=== PATIENT | female | born 1980 | race Caucasian/White ===

== ENCOUNTER 2020-07-27 19:23 | Inpatient (IN) | payer OTHER ==
[~2020-07-27] VITALS: Ht 154.9 cm; Wt 69.0 kg
[2020-07-27] MEDS ORDERED: NITR0.4T52 SL (19:50)
[2020-07-27] MEDS ORDERED: ATOR40TA28 PO (19:50)
[2020-07-27] MEDS ORDERED: ASPI81TA39 PO (19:50)
[2020-07-27] MEDS ORDERED: CLOP-31 PO (19:50)
[2020-07-27] MEDS ORDERED: ASPIRIN 325 MG TABLET PO ONE (20:15)
[2020-07-27] MEDS ORDERED: NITROGLYCERIN 0.4 MG SUBLINGUAL TABLET #25 SL ONE (20:15)
[2020-07-27] MEDS ORDERED: NITROGLYCERIN 2% (1 GM=INCH) PACKET TP ONE (20:15)
[2020-07-27 20:25] LABS: BASOPHILS % (AUTO) 0.5 % (0.0-2.0); EOSINOPHILS % (AUTO) 3.8 % (1.0-6.0); HEMATOCRIT 32.4 % (36-46); HEMOGLOBIN 9.8 g/dL (12.0-16.0); LYMPHOCYTES # (AUTO) 5.6 K/uL (1.0-4.8); LYMPHOCYTES % (AUTO) 53.7 % (22.0-44.0); MEAN CORPUSCULAR HEMOGLOBIN 20.4 pg (26.0-34.0); MEAN CORPUSCULAR HGB CONC 30.4 G/dL (31.0-37.0); MEAN CORPUSCULAR VOLUME 67 fL (80-100); MONOCYTES # (AUTO) 0.8 K/uL (0.1-1.0); MONOCYTES % (AUTO) 7.4 % (2.0-9.0); NEUTROPHILS # (AUTO) 3.6 K/uL (1.8-7.7); NEUTROPHILS % (AUTO) 34.6 % (40.0-70.0); PLATELET COUNT (AUTO) 328 K/uL (150-450); RED BLOOD CELL COUNT(AUTO) 4.82 MIL/uL (4.00-5.20); RED CELL DISTRIBUTION WIDTH 18.6 % (11.5-14.5)
[2020-07-27 20:50] LABS: COVID AG,FIA SOURCE NASOPHARYNGEAL
[2020-07-27 21:05] LABS: ANION GAP 8 mmol/L (8-16); CALCIUM, TOTAL 9.1 mg/dL (8.8-10.5); CARBON DIOXIDE 29 mmol/L (22-29); CHLORIDE 103 mmol/L (98-107); CREATININE 0.79 mg/dL (0.60-1.30); GLOMERULAR FILTR. RATE CALC > 60 mL/min (>60); GLUCOSE,RANDOM 78 mg/dL (70-110); POTASSIUM 3.6 mmol/L (3.5-5.1); SODIUM SERUM 140 mmol/L (136-145); UREA NITROGEN, BLOOD 13 mg/dL (7-18)
[2020-07-27 21:07] LABS: B-TYPE NATRIURETIC PEPTIDE 28 pg/mL (0-100)
[2020-07-27 21:08] LABS: APPEARANCE,URINE CLOUDY (CLEAR); BILIRUBIN,URINE NEGATIVE (NEGATIVE); GLUCOSE, URINE (UA) NEGATIVE (NEGATIVE); KETONES,URINE NEGATIVE (NEGATIVE); LEUKOCYTE ESTERASE ,URINE SMALL (NEGATIVE); NITRATE,URINE NEGATIVE (NEGATIVE); OCCULT BLOOD,URINE NEGATIVE (NEGATIVE); PROTEIN,URINE NEGATIVE (NEGATIVE); UROBILINOGEN,URINE 0.2 mg/dL (<=1.0)
[2020-07-27 21:18] LABS: LACTIC ACID 2.1 mmol/L (0.4-2.0)
[2020-07-27 21:21] LABS: AMPHET/METH SCREEN,URINE NEGATIVE (NEGATIVE); BARBITURATE SCREEN, URINE NEGATIVE (NEGATIVE); BENZODIAZEPINES SCREEN,URINE NEGATIVE (NEGATIVE); CANNABINOID SCREEN,URINE NEGATIVE (NEGATIVE); COCAINE SCREEN,URINE NEGATIVE (NEGATIVE); METHADONE SCREEN, URINE NEGATIVE (NEGATIVE); OPIATE SCREEN,URINE NEGATIVE (NEGATIVE)
[2020-07-27 21:22] LABS: PHENCYCLIDINE SCREEN,URINE NEGATIVE (NEGATIVE)
[2020-07-27 21:23] LABS: ALANINE AMINOTRANSFERASE 191 U/L (12-78); ALKALINE PHOSPHATASE 131 U/L (46-116); ASPARTATE AMINOTRANSFERASE 88 U/L (15-37); BILIRUBIN,TOTAL 0.1 mg/dL (0.1-1.0); CREATINE KINASE, TOTAL ONLY 80 U/L (26-192); TOTAL PROTEIN, SERUM 8.1 g/dL (6.4-8.2)
[2020-07-27 21:24] LABS: ALBUMIN 3.6 g/dL (3.4-5.0); LIPASE 201 U/L (73-393)
[2020-07-27] MEDS ORDERED: ACETAMINOPHEN 325 MG TABLET PO PRN ×2 (21:30→22:00)
[2020-07-27] MEDS ORDERED: 0.9% SODIUM CHLORIDE 10 ML SYRINGE IVP PRN ×2 (21:30→22:00)
[2020-07-27] MEDS ORDERED: ONDANSETRON HCL 4 MG/2 ML VIAL IVP PRN ×2 (21:30→22:00)
[2020-07-27 21:39] LABS: BACTERIA,URINE None Seen /HPF (None Seen); RBC,URINE None Seen /HPF (0-2); SQUAMOUS EPITHELIAL CELL,UR Moderate /LPF (None Seen); WBC,URINE 0-2 /HPF (0-5)
[2020-07-27 21:43] LABS: HCG,QUANTITATIVE < 1 mIU/mL (0-6)
[2020-07-27] MEDS ORDERED: NITROGLYCERIN 0.4 MG SUBLINGUAL TABLET #25 SL PRN (22:00)
[2020-07-27] MEDS ORDERED: SODIUM CHLORIDE 0.45% 500 ML IV ONE (22:30)
[2020-07-27 22:44] LABS: % IRON SATURATION 19.8 % (22-44)
[2020-07-27 23:40] VITALS: BP 146/85
[2020-07-28] MEDS: HEPARIN SODIUM,PORCINE 5,000 UNITS/ML VIAL SQ SCH ×2 (00:55→08:16)
[2020-07-28] MEDS ORDERED: ACETAMINOPHEN 325 MG TABLET PO ONE ×2 (01:15→18:30)
[2020-07-28] MEDS ORDERED: INFLUENZA VIRUS VACCINE QVS 2020-21 (6MO+)/PF 60 MCG/0.5 ML SYRINGE IM ONE (02:15)
[2020-07-28] MEDS: TICAGRELOR 90 MG TABLET PO SCH ×2 (08:16→20:10)
[2020-07-28] MEDS: ASPIRIN 81 MG CHEWABLE TABLET PO SCH (08:16)
[2020-07-28] MEDS ORDERED: ATORVASTATIN CALCIUM 40 MG TABLET PO SCH (09:00)
[2020-07-28] MEDS: ATORVASTATIN CALCIUM 40 MG TABLET PO SCH (10:56)
[2020-07-28 11:24] VITALS: BP 139/79
[2020-07-28 16:54] VITALS: BP 131/81
[2020-07-28 19:22] VITALS: BP 128/65
[2020-07-28] MEDS: CARVEDILOL 6.25 MG TABLET PO SCH (20:11)
[2020-07-28 23:03] VITALS: BP 135/87
[2020-07-29 05:49] VITALS: BP 133/84
[2020-07-29 08:14] VITALS: BP 111/63
[2020-07-29] MEDS: TICAGRELOR 90 MG TABLET PO SCH (08:35)
[2020-07-29] MEDS: CARVEDILOL 6.25 MG TABLET PO SCH (08:35)
[2020-07-29] MEDS: ATORVASTATIN CALCIUM 40 MG TABLET PO SCH (08:35)
[2020-07-29] MEDS: ASPIRIN 81 MG CHEWABLE TABLET PO SCH (08:35)
[2020-07-29] MEDS ORDERED: LISI-660 PO (10:31)
[2020-07-30] MEDS ORDERED: CLOPIDOGREL BISULFATE 75 MG TABLET PO SCH (09:00)
[2020-07-30] MEDS ORDERED: LISINOPRIL 5 MG TABLET PO SCH (09:00)
== END 2020-07-29 11:10 | disposition home or self-care (01) | DRG 303 ==
LOC: EMS 19:25 → OBSVTOIN 23:22 → 5S 23:22 → INTOOBSV 23:22
PROVIDERS: ADMIT Internal Medicine; ATTEND Internal Medicine
DX: I25.10 Atherosclerotic heart disease of native coronary artery without angina pectoris (principal); I10 Essential (primary) hypertension; E78.5 Hyperlipidemia, unspecified; D64.9 Anemia, unspecified; E78.00 Pure hypercholesterolemia, unspecified; Z20.828 Contact with and (suspected) exposure to other viral communicable diseases; Z95.5 Presence of coronary angioplasty implant and graft; Z88.8 Allergy status to other drugs, medicaments and biological substances
CPT/HCPCS: 83540; 83550; 83605; 85379; 87426; 93005; 93306; 99219; G0480; J1644; 36415-L1; 36415-TC; 71045-TC

== ENCOUNTER 2024-03-11 11:57 | Inpatient (IN) | payer MEDICAID ==
[~2024-03-11] VITALS: Ht 157.5 cm; Wt 71.8 kg
[~2024-03-11 11:57] MED LIST: ASPI81TA39 PO; ATOR40TA28 PO; CLOP75TA60 PO; FLUO-177 PO; LISI-892 PO; NITR0.4T52 SL
[2024-03-11 13:11] LABS: GLUCOMETER DEV NAME(LOC) POC.BV; POC SARS-COV2 AG, FIA NEGATIVE (NEGATIVE)
[2024-03-11] MEDS ORDERED: LORazepam 2 MG TABLET PO PRN (15:45)
[2024-03-11] MEDS ORDERED: ZOLPIDEM TARTRATE 10 MG TABLET PO PRN (15:45)
[2024-03-11 17:43] VITALS: BP 145/74; RESP 18; TEMP 98.3; O2SAT 98
[2024-03-11 18:17] VITALS: BP 140/80; PULSE 80; RESP 18; TEMP 98
[2024-03-11 21:30] VITALS: BP 117/87; PULSE 110; RESP 19; TEMP 97.4; O2SAT 97
[2024-03-11] MEDS ORDERED: IBUPROFEN 400 MG TABLET PO PRN (21:45)
[2024-03-11] MEDS ORDERED: LOPERAMIDE HCL 2 MG CAPSULE PO PRN (21:45)
[2024-03-11] MEDS ORDERED: MAG HYDROX/ALUMINUM HYD/SIMETH ES 30 ML SUSPENSION UDCUP PO PRN (21:45)
[2024-03-11] MEDS ORDERED: PETROLATUM,WHITE 28 GM JELLY TP PRN (21:45)
[2024-03-11] MEDS ORDERED: GuaiFENesin/D-METHORPHAN [SUGAR-FREE] 200-20MG/10 ML SYRUP UDCUP PO PRN (21:45)
[2024-03-11] MEDS ORDERED: NICOTINE 14 MG/24 HOUR PATCH TD PRN (21:45)
[2024-03-11] MEDS ORDERED: ALBUTEROL SULFATE HFA 90 MCG/PUFF 8 GM INHALER IH PRN (21:45)
[2024-03-11] MEDS ORDERED: ACETAMINOPHEN 325 MG TABLET PO PRN (21:45)
[2024-03-11] MEDS ORDERED: DOCUSATE SODIUM 100 MG CAPSULE PO PRN (21:45)
[2024-03-11] MEDS ORDERED: MAGNESIUM HYDROXIDE SUSPENSION 30 ML UDCUP PO PRN (21:45)
[2024-03-12 08:33] LABS: BASOPHILS % (AUTO) 0.4 % (0.0-2.0); EOSINOPHILS % (AUTO) 2.9 % (1.0-6.0); HEMATOCRIT 37.9 % (36-46); HEMOGLOBIN 12.3 g/dL (12.0-16.0); LYMPHOCYTES # (AUTO) 2.1 K/uL (1.0-4.8); LYMPHOCYTES % (AUTO) 27.7 % (22.0-44.0); MEAN CORPUSCULAR HEMOGLOBIN 28.1 pg (26.0-34.0); MEAN CORPUSCULAR HGB CONC 32.5 G/dL (31.0-37.0); MEAN CORPUSCULAR VOLUME 86 fL (80-100); MONOCYTES # (AUTO) 0.6 K/uL (0.1-1.0); MONOCYTES % (AUTO) 8.2 % (2.0-9.0); NEUTROPHILS # (AUTO) 4.5 K/uL (1.8-7.7); NEUTROPHILS % (AUTO) 60.8 % (40.0-70.0); PLATELET COUNT (AUTO) 527 K/uL (150-450); RED BLOOD CELL COUNT(AUTO) 4.38 MIL/uL (4.00-5.20); RED CELL DISTRIBUTION WIDTH 16.9 % (11.5-14.5); WHITE BLOOD COUNT (AUTO) 7.5 K/uL (4.5-11.0)
[2024-03-12 08:46] LABS: HEMOGLOBIN A1C 5.6 % (3.8-5.6)
[2024-03-12 08:58] LABS: ALANINE AMINOTRANSFERASE 17 U/L (12-78); ALBUMIN 3.2 g/dL (3.4-5.0); ALKALINE PHOSPHATASE 119 U/L (46-116); ANION GAP 9 mmol/L (8-16); ASPARTATE AMINOTRANSFERASE 14 U/L (15-37); BILIRUBIN,TOTAL 0.1 mg/dL (0.1-1.0); CALCIUM, TOTAL 9.4 mg/dL (8.8-10.5); CARBON DIOXIDE 29 mmol/L (22-29); CHLORIDE 103 mmol/L (98-107); CHOL/HDL RATIO 6.1 (3.9-5.7); CHOLESTEROL 315 mg/dL (131-200); CREATININE 0.97 mg/dL (0.60-1.30); GLOMERULAR FILTR. RATE CALC > 60 mL/min (>60); GLUCOSE,RANDOM 98 mg/dL (70-110); HCG,QUANTITATIVE 1 mIU/mL (0-6); HDL CHOLESTEROL 52 mg/dL (40-60); LDL CHOL (CALC.) 242 mg/dL (0-130); POTASSIUM 3.6 mmol/L (3.5-5.1); SODIUM SERUM 141 mmol/L (136-145); T4 (THYROXINE) 6.8 mcg/dL (4.7-13.3); THYROID STIMULATING HORMONE 1.03 uIU/mL (0.36-3.74); TOTAL PROTEIN, SERUM 7.9 g/dL (6.4-8.2); TRIGLYCERIDES 107 mg/dL (15-150); UREA NITROGEN, BLOOD 10 mg/dL (7-18)
[2024-03-12] MEDS: CLOPIDOGREL BISULFATE 75 MG TABLET PO SCH (08:58)
[2024-03-12] MEDS: LevETIRAcetam 100 MG/ML 5 ML SOLUTION UDCUP PO SCH (08:58)
[2024-03-12] MEDS: BICTEGRAV/EMTRICIT/TENOFOV ALA 50-200-25 MG TABLET PO SCH (08:58)
[2024-03-12] MEDS: ATORVASTATIN CALCIUM 40 MG TABLET PO SCH (08:59)
[2024-03-12] MEDS: LACOSAMIDE 100 MG TABLET PO SCH (08:59)
[2024-03-12] MEDS: ASPIRIN 81 MG CHEWABLE TABLET PO SCH (08:59)
[2024-03-12] MEDS: LISINOPRIL 10 MG TABLET PO SCH (08:59)
[2024-03-12] MEDS: HALOPERIDOL 5 MG TABLET PO PRN (09:20)
[2024-03-12 09:38] LABS: APPEARANCE,URINE CLEAR (CLEAR); BILIRUBIN,URINE NEGATIVE (NEGATIVE); COLOR,URINE LIGHT YELLOW (YELLOW); GLUCOSE, URINE (UA) NEGATIVE (NEGATIVE); KETONES,URINE NEGATIVE (NEGATIVE); LEUKOCYTE ESTERASE ,URINE MODERATE (NEGATIVE); NITRATE,URINE NEGATIVE (NEGATIVE); OCCULT BLOOD,URINE MODERATE (NEGATIVE); PH,URINE 6.5 (5.0-8.0); PH,URINE DRUG SCREEN 6.5 (5.0-8.0); PROTEIN,URINE TRACE mg/dL (NEGATIVE); SPECIFIC GRAVITIY, URINE 1.018 (1.003-1.030); UROBILINOGEN,URINE <=1.0 mg/dL (<=1.0)
[2024-03-12 09:47] LABS: ALCOHOL, URINE DRUG SCREEN NEGATIVE (NEGATIVE); AMPHET/METH SCREEN,URINE POSITIVE (NEGATIVE); BARBITURATE SCREEN, URINE NEGATIVE (NEGATIVE); BENZODIAZEPINES SCREEN,URINE NEGATIVE (NEGATIVE); CANNABINOID SCREEN,URINE NEGATIVE (NEGATIVE); COCAINE SCREEN,URINE NEGATIVE (NEGATIVE); METHADONE SCREEN, URINE NEGATIVE (NEGATIVE); OPIATE SCREEN,URINE NEGATIVE (NEGATIVE); PHENCYCLIDINE SCREEN,URINE NEGATIVE (NEGATIVE)
[2024-03-12 09:49] VITALS: BP 95/97; PULSE 95; RESP 17; TEMP 97.3; O2SAT 97
[2024-03-12 09:55] LABS: BACTERIA,URINE Few /HPF (None Seen); SQUAMOUS EPITHELIAL CELL,UR Moderate /LPF (None Seen)
[2024-03-12] MEDS ORDERED: TRAZ-252 PO (10:54)
[2024-03-12] MEDS ORDERED: AMIT50TA3 PO (10:54)
[2024-03-12] MEDS: FLUoxetine HCL 20 MG CAPSULE PO SCH (13:09)
[2024-03-12 20:48] VITALS: BP 105/60; PULSE 97; RESP 18; TEMP 98; O2SAT 97
[2024-03-12] MEDS: TraZODone HCL 50 MG TABLET PO SCH (20:59)
[2024-03-12] MEDS: AMITRIPTYLINE HCL 50 MG TABLET PO SCH (20:59)
[2024-03-12] MEDS: METOPROLOL SUCCINATE 50 MG ER TABLET PO SCH (20:59)
[2024-03-13 08:48] VITALS: BP 139/64; PULSE 71; RESP 18; TEMP 97.9; O2SAT 94
[2024-03-13] MEDS: CEPHALEXIN MONOHYDRATE 250 MG CAPSULE PO SCH (09:30)
[2024-03-13] MEDS ORDERED: FLUoxetine HCL 10 MG CAPSULE PO SCH (10:25)
[2024-03-13] MEDS ORDERED: FLUoxetine HCL 20 MG CAPSULE PO SCH (10:25)
[2024-03-13] MEDS: FLUoxetine HCL 20 MG CAPSULE PO SCH (10:51)
[2024-03-13] MEDS ORDERED: LevETIRAcetam 500 MG TABLET PO SCH (17:00)
[2024-03-13] MEDS: ONDANSETRON HCL 4 MG TABLET PO PRN (19:09)
[2024-03-13 19:15] VITALS: BP 138/88; PULSE 74; RESP 18; TEMP 96.6; O2SAT 95
[2024-03-13 19:50] VITALS: BP 149/83; PULSE 70; RESP 18; TEMP 97.4; O2SAT 98
[2024-03-13] MEDS ORDERED: ZOLP-280 PO (19:59)
[2024-03-13] MEDS ORDERED: FAMO20 PO (19:59)
[2024-03-13] MEDS ORDERED: BICT1TAB PO (19:59)
[2024-03-13] MEDS ORDERED: EZET10TA57 PO (19:59)
[2024-03-13] MEDS ORDERED: METO-391 PO (19:59)
[2024-03-13] MEDS ORDERED: LISI10TA24 PO (19:59)
[2024-03-13] MEDS ORDERED: ATOR-2 PO (19:59)
[2024-03-13] MEDS ORDERED: SUMA50TA17 PO (19:59)
[2024-03-13] MEDS ORDERED: ASPI-1444 PO (19:59)
[2024-03-13] MEDS ORDERED: FERR-72 PO (19:59)
[2024-03-13] MEDS ORDERED: SENN-277 PO (19:59)
[2024-03-13] MEDS ORDERED: NALT380S2 IM (19:59)
[2024-03-13] MEDS ORDERED: LEVE10006 PO (19:59)
[2024-03-13] MEDS ORDERED: LACO100 PO (19:59)
[2024-03-13] MEDS ORDERED: CloNIDine HCL 0.1 MG TABLET PO PRN (20:00)
[2024-03-13] MEDS ORDERED: IBUPROFEN 600 MG TABLET PO PRN (20:00)
[2024-03-13] MEDS ORDERED: HydrOXYzine PAMOATE 50 MG CAPSULE PO PRN (20:00)
[2024-03-13] MEDS ORDERED: MAG HYDROX/ALUMINUM HYD/SIMETH ES 30 ML SUSPENSION UDCUP PO PRN (20:00)
[2024-03-13 20:50] VITALS: BP 150/68; PULSE 77; RESP 17; TEMP 97.2; O2SAT 94
[2024-03-13 21:50] VITALS: BP 111/71; PULSE 63; RESP 17; RESP 18; TEMP 97.2; O2SAT 96
[2024-03-13] MEDS: CloNIDine HCL 0.1 MG TABLET PO SCH (22:00)
[2024-03-13 22:50] VITALS: BP 112/69; PULSE 63; RESP 17; TEMP 97.4; O2SAT 98
[2024-03-14] VITALS (10 sets, daily range): BP systolic 117–144; BP diastolic 62–74; PULSE 63–80; RESP 17–18; TEMP 97–98; O2SAT 92–97
[2024-03-15 10:32] VITALS: BP 105/57; PULSE 93; RESP 19; TEMP 97.3; O2SAT 94
[2024-03-15] MEDS ORDERED: FLUO20CA36 PO (11:49)
[2024-03-15] MEDS ORDERED: TRAZ-252 PO (11:49)
[2024-03-15] MEDS ORDERED: AMIT50TA3 PO (11:49)
[2024-03-15 12:12] VITALS: BP 133/95
[2024-03-15] MEDS ORDERED: CEPH-556 PO (12:59)
== END 2024-03-15 16:10 | disposition home or self-care (01) | DRG 751 ==
LOC: B2S 12:42
PROVIDERS: ADMIT Psychiatry & Neurology Psychiatry; ATTEND Psychiatry & Neurology Psychiatry
PROC: GZHZZZZ Group Psychotherapy (ICD-10-PCS; principal; 2024-03-12)
DX: F33.2 Major depressive disorder, recurrent severe without psychotic features (principal); R45.851 Suicidal ideations; G40.909 Epilepsy, unspecified, not intractable, without status epilepticus; G47.00 Insomnia, unspecified; Z79.899 Other long term (current) drug therapy; I10 Essential (primary) hypertension; F15.90 Other stimulant use, unspecified, uncomplicated; F11.90 Opioid use, unspecified, uncomplicated; N39.0 Urinary tract infection, site not specified; I25.10 Atherosclerotic heart disease of native coronary artery without angina pectoris; E78.5 Hyperlipidemia, unspecified; Z20.822 Contact with and (suspected) exposure to COVID-19; Z95.0 Presence of cardiac pacemaker; Z88.2 Allergy status to sulfonamides
CPT/HCPCS: 80053; 80061; 80307; 81001; 83036; 84436; 84443; 84702; 85025; 87086; 87186; Q0162; Q9967

== ENCOUNTER 2024-12-25 20:41 | Inpatient (IN) | payer MEDICAID, OTHER ==
[~2024-12-25] VITALS: Ht 152.4 cm; Wt 65.9 kg
[~2024-12-25 20:41] MED LIST changes: +AMIT50TA3 PO; +ASPI-1444 PO; -ASPI81TA39 PO; +BICT1TAB PO; +CEPH-556 PO; -FLUO-177 PO; +FLUO-418 PO; +LACO100T14 PO; +LEVE10006 PO; -LISI-892 PO; +LISI10TA24 PO; +METO-391 PO; -NITR0.4T52 SL; +TRAZ-252 PO
[2024-12-25 21:14] LABS: BASOPHILS % (AUTO) 0.3 % (0.0-2.0); EOSINOPHILS % (AUTO) 1.4 % (1.0-6.0); HEMATOCRIT 38.5 % (36-46); HEMOGLOBIN 12.2 g/dL (12.0-16.0); LYMPHOCYTES # (AUTO) 1.8 K/uL (1.0-4.8); LYMPHOCYTES % (AUTO) 23.1 % (22.0-44.0); MEAN CORPUSCULAR HEMOGLOBIN 27.1 pg (26.0-34.0); MEAN CORPUSCULAR HGB CONC 31.7 G/dL (31.0-37.0); MEAN CORPUSCULAR VOLUME 86 fL (80-100); MONOCYTES # (AUTO) 0.6 K/uL (0.1-1.0); MONOCYTES % (AUTO) 8.3 % (2.0-9.0); NEUTROPHILS # (AUTO) 5.2 K/uL (1.8-7.7); NEUTROPHILS % (AUTO) 66.9 % (40.0-70.0); PLATELET COUNT (AUTO) 350 K/uL (150-450); WHITE BLOOD COUNT (AUTO) 7.7 K/uL (4.5-11.0)
[2024-12-25 21:24] LABS: COVID AG,FIA SOURCE NASAL SWAB
[2024-12-25 21:26] LABS: APPEARANCE,URINE HAZY (CLEAR); BILIRUBIN,URINE NEGATIVE (NEGATIVE); COLOR,URINE LIGHT YELLOW (YELLOW); GLUCOSE, URINE (UA) NEGATIVE (NEGATIVE); KETONES,URINE NEGATIVE (NEGATIVE); LEUKOCYTE ESTERASE ,URINE NEGATIVE (NEGATIVE); NITRATE,URINE NEGATIVE (NEGATIVE); OCCULT BLOOD,URINE NEGATIVE (NEGATIVE); PROTEIN,URINE TRACE mg/dL (NEGATIVE); SPECIFIC GRAVITIY, URINE 1.023 (1.003-1.030); UROBILINOGEN,URINE <=1.0 mg/dL (<=1.0)
[2024-12-25 21:27] LABS: ANION GAP 9 mmol/L (8-16); CALCIUM, TOTAL 9.1 mg/dL (8.8-10.5); CARBON DIOXIDE 25 mmol/L (22-29); CHLORIDE 104 mmol/L (98-107); GLOMERULAR FILTR. RATE CALC 54 mL/min (>60); GLUCOSE,RANDOM 105 mg/dL (70-110); POTASSIUM 3.6 mmol/L (3.5-5.1); SODIUM SERUM 138 mmol/L (136-145); UREA NITROGEN, BLOOD 14 mg/dL (7-18)
[2024-12-25 21:31] LABS: ALCOHOL, BLOOD (SERUM) < 3 mg/dL (0-10)
[2024-12-25 21:33] LABS: ALCOHOL, URINE DRUG SCREEN NEGATIVE (NEGATIVE); AMPHET/METH SCREEN,URINE NEGATIVE (NEGATIVE); BARBITURATE SCREEN, URINE NEGATIVE (NEGATIVE); BENZODIAZEPINES SCREEN,URINE NEGATIVE (NEGATIVE); CANNABINOID SCREEN,URINE NEGATIVE (NEGATIVE); COCAINE SCREEN,URINE NEGATIVE (NEGATIVE); METHADONE SCREEN, URINE NEGATIVE (NEGATIVE); OPIATE SCREEN,URINE NEGATIVE (NEGATIVE); PHENCYCLIDINE SCREEN,URINE NEGATIVE (NEGATIVE)
[2024-12-25 21:45] LABS: SARS-COV2 (COVID) ANTIGEN,FIA Negative (Negative)
[2024-12-25] MEDS ORDERED: ACYC-138 PO (22:15)
[2024-12-25] MEDS ORDERED: AMIT25TA10 PO (22:22)
[2024-12-25] MEDS ORDERED: CLOP-31 PO (22:23)
[2024-12-25] MEDS ORDERED: ATOR-2 PO (22:23)
[2024-12-25] MEDS ORDERED: EZET10TA82 PO (22:24)
[2024-12-25] MEDS ORDERED: LAMI300T10 PO (22:25)
[2024-12-25] MEDS ORDERED: LISI2.5T91 PO (22:26)
[2024-12-25] MEDS ORDERED: OMEP-148 PO (22:27)
[2024-12-25] MEDS ORDERED: LORA-1370 PO (22:27)
[2024-12-25] MEDS ORDERED: PREG75CA76 PO (22:29)
[2024-12-25] MEDS ORDERED: TENO300 PO (22:29)
[2024-12-25] MEDS ORDERED: DOLU50TA PO (22:30)
[2024-12-25] MEDS ORDERED: TOPI25TA48 PO (22:31)
[2024-12-25] MEDS ORDERED: ZOLPIDEM TARTRATE 5 MG TABLET PO PRN (22:45)
[2024-12-25] MEDS ORDERED: MAGNESIUM HYDROXIDE SUSPENSION 30 ML UDCUP PO PRN (22:45)
[2024-12-25 23:43] VITALS: BP 110/66; PULSE 79; RESP 18; TEMP 98.2; O2SAT 97
[2024-12-26] MEDS ORDERED: FERR325T27 PO (03:58)
[2024-12-26] MEDS ORDERED: LAMO-24 PO (03:58)
[2024-12-26] MEDS ORDERED: PARO-38 PO (03:58)
[2024-12-26 05:29] VITALS: BP 104/58; PULSE 85; RESP 18; TEMP 97.8; O2SAT 97
[2024-12-26 08:24] VITALS: BP 111/63; PULSE 81; RESP 20; TEMP 98.1; O2SAT 98
[2024-12-26] MEDS: TENOFOVIR DISOPROXIL FUMARATE 300 MG TABLET PO SCH (09:00)
[2024-12-26] MEDS: DOLUTEGRAVIR SODIUM 50 MG TABLET PO SCH (09:42)
[2024-12-26] MEDS: PANTOPRAZOLE SODIUM 40 MG DR TABLET PO SCH (09:43)
[2024-12-26] MEDS: LISINOPRIL 5 MG TABLET PO SCH (09:43)
[2024-12-26] MEDS: CLOPIDOGREL BISULFATE 75 MG TABLET PO SCH (09:44)
[2024-12-26] MEDS: LORATADINE 10 MG TABLET PO SCH (09:46)
[2024-12-26] MEDS: EZETIMIBE 10 MG TABLET PO SCH (09:46)
[2024-12-26] MEDS: LamoTRIgine 100 MG TABLET PO SCH (09:47)
[2024-12-26] MEDS: TOPIRAMATE 25 MG TABLET PO SCH (09:47)
[2024-12-26] MEDS: ATORVASTATIN CALCIUM 40 MG TABLET PO SCH (09:47)
[2024-12-26] MEDS: PREGABALIN 75 MG CAPSULE PO SCH (09:48)
[2024-12-26] MEDS: LACOSAMIDE 100 MG TABLET PO SCH (09:48)
[2024-12-26] MEDS: LevETIRAcetam 100 MG/ML 5 ML SOLUTION UDCUP PO SCH (09:50)
[2024-12-26] MEDS: ASPIRIN 81 MG DR TABLET PO SCH (09:52)
[2024-12-26] MEDS: ACETAMINOPHEN 325 MG TABLET PO PRN (17:09)
[2024-12-26] MEDS ORDERED: RIME75TA PO (17:26)
[2024-12-26] MEDS: SUMAtriptan SUCCINATE 25 MG TABLET PO PRN (17:58)
[2024-12-26 19:30] VITALS: BP 125/84; PULSE 100; RESP 18; TEMP 98.6; O2SAT 97
[2024-12-26] MEDS: PARoxetine HCL 20 MG TABLET PO SCH (19:53)
[2024-12-26] MEDS: AMITRIPTYLINE HCL 50 MG TABLET PO SCH (19:53)
[2024-12-26] MEDS: QUEtiapine FUMARATE 25 MG TABLET PO SCH (19:53)
[2024-12-26] MEDS: LORazepam 2 MG/ML VIAL IM ONE (21:45)
[2024-12-26] MEDS: DiphenhydrAMINE HCL 50 MG/ML VIAL IM ONE (21:55)
[2024-12-26] MEDS: HALOPERIDOL LACTATE 5 MG/ML VIAL IM ONE (21:55)
[2024-12-27 08:24] VITALS: BP 111/82; PULSE 82; RESP 18; TEMP 97.6; O2SAT 96
[2024-12-28] MEDS: HALOPERIDOL LACTATE 5 MG/ML VIAL IM ONE (00:17)
[2024-12-28 09:11] VITALS: BP 98/58; PULSE 85; RESP 18; TEMP 98; O2SAT 96
== END 2024-12-28 20:00 | DRG 885 ==
LOC: EMS 20:41 → EDH 22:36 → 6N 23:29
PROVIDERS: ADMIT Internal Medicine; ATTEND Internal Medicine
PROC: GZ56ZZZ Individual Psychotherapy, Supportive (ICD-10-PCS; principal; 2024-12-26)
PROC: GZ58ZZZ Individual Psychotherapy, Cognitive-Behavioral (ICD-10-PCS; 2024-12-26)
DX: F29 Unspecified psychosis not due to a substance or known physiological condition (principal); K21.9 Gastro-esophageal reflux disease without esophagitis; I11.0 Hypertensive heart disease with heart failure; Z20.822 Contact with and (suspected) exposure to COVID-19; I50.9 Heart failure, unspecified; F20.9 Schizophrenia, unspecified; R56.9 Unspecified convulsions; F32.A Depression, unspecified; F41.9 Anxiety disorder, unspecified; Z79.899 Other long term (current) drug therapy; Z88.2 Allergy status to sulfonamides
CPT/HCPCS: 80048; 80307; 81003; 84703; 85025; 93306; 99285; G0480; J1200; J1630; J2060

== ENCOUNTER 2025-02-18 15:19 | Inpatient (IN) | payer OTHER ==
[~2025-02-18] VITALS: Ht 152.4 cm; Wt 81.8 kg
[~2025-02-18 15:19] MED LIST changes: +ACYC-138 PO; -AMIT50TA3 PO; +ATOR-2 PO; -ATOR40TA28 PO; -BICT1TAB PO; -CEPH-556 PO; +CLOP-31 PO; -CLOP75TA60 PO; +DOLU50TA PO; +EZET10TA82 PO; -FLUO-418 PO; +LAMI300T10 PO; +LAMO-24 PO; +LEVE100023 PO; -LEVE10006 PO; -LISI10TA24 PO; +LISI2.5T91 PO; +LORA-1370 PO; -METO-391 PO; +OMEP-148 PO; +PARO-38 PO; +PREG75CA76 PO; +RIME75TA PO; +TENO300 PO; +TOPI25 PO
[2025-02-18 16:14] LABS: BASOPHILS % (AUTO) 0.4 % (0.0-2.0); EOSINOPHILS % (AUTO) 2.3 % (1.0-6.0); HEMATOCRIT 37.7 % (36-46); HEMOGLOBIN 12.1 g/dL (12.0-16.0); LYMPHOCYTES # (AUTO) 2.1 K/uL (1.0-4.8); LYMPHOCYTES % (AUTO) 27.4 % (22.0-44.0); MEAN CORPUSCULAR HEMOGLOBIN 27.4 pg (26.0-34.0); MEAN CORPUSCULAR HGB CONC 32.1 G/dL (31.0-37.0); MEAN CORPUSCULAR VOLUME 85 fL (80-100); MONOCYTES # (AUTO) 0.7 K/uL (0.1-1.0); MONOCYTES % (AUTO) 9.1 % (2.0-9.0); NEUTROPHILS # (AUTO) 4.8 K/uL (1.8-7.7); NEUTROPHILS % (AUTO) 60.8 % (40.0-70.0); PLATELET COUNT (AUTO) 327 K/uL (150-450); RED BLOOD CELL COUNT(AUTO) 4.42 MIL/uL (4.00-5.20); RED CELL DISTRIBUTION WIDTH 17.3 % (11.5-14.5); WHITE BLOOD COUNT (AUTO) 7.8 K/uL (4.5-11.0)
[2025-02-18 16:24] LABS: ANION GAP 10 mmol/L (8-16); CARBON DIOXIDE 28 mmol/L (22-29); CHLORIDE 105 mmol/L (98-107); CREATININE 0.85 mg/dL (0.60-1.30); GLOMERULAR FILTR. RATE CALC > 60 mL/min (>60); GLUCOSE,RANDOM 94 mg/dL (70-110); POTASSIUM 4.4 mmol/L (3.5-5.1); SODIUM SERUM 143 mmol/L (136-145); UREA NITROGEN, BLOOD 11 mg/dL (7-18)
[2025-02-18 16:30] LABS: PROTHROMBIN TIME 10.1 SEC (9.4-11.6)
[2025-02-18 16:34] LABS: CREATINE KINASE, TOTAL ONLY 67 U/L (26-192)
[2025-02-18 16:36] LABS: TROPONIN I-HIGH SENSITIVITY Less Than 4 ng/L (<51)
[2025-02-18] MEDS: NITROGLYCERIN 2% (1 GM=INCH) OINTMENT PACKET TP ONE (16:42)
[2025-02-18] MEDS: ASPIRIN 81 MG CHEWABLE TABLET PO ONE (16:42)
[2025-02-18 16:43] LABS: APPEARANCE,URINE CLEAR (CLEAR); BILIRUBIN,URINE NEGATIVE (NEGATIVE); COLOR,URINE COLORLESS (YELLOW); GLUCOSE, URINE (UA) NEGATIVE (NEGATIVE); KETONES,URINE NEGATIVE (NEGATIVE); LEUKOCYTE ESTERASE ,URINE NEGATIVE (NEGATIVE); NITRATE,URINE NEGATIVE (NEGATIVE); OCCULT BLOOD,URINE NEGATIVE (NEGATIVE); PROTEIN,URINE NEGATIVE (NEGATIVE); UROBILINOGEN,URINE <=1.0 mg/dL (<=1.0)
[2025-02-18 16:58] LABS: B-TYPE NATRIURETIC PEPTIDE 8 pg/mL (0-100)
[2025-02-18] MEDS ORDERED: ONDANSETRON HCL 4 MG/2 ML VIAL IVP PRN (17:45)
[2025-02-18] MEDS ORDERED: HYDROmorphone HCL 2 MG/ML SYRINGE IVP PRN (18:15)
[2025-02-18 19:37] LABS: TROPONIN I-HIGH SENSITIVITY Less Than 4 ng/L (<51)
[2025-02-18 20:00] VITALS: BP 99/67; PULSE 75; RESP 19; TEMP 98.1; O2SAT 97
[2025-02-18] MEDS ORDERED: NITROGLYCERIN 0.4 MG SUBLINGUAL TABLET #25 SL PRN (20:45)
[2025-02-18] MEDS: RINGERS SOLUTION,LACTATED 500 ML IV ONE (21:01)
[2025-02-18] MEDS: LACOSAMIDE 100 MG TABLET PO SCH (22:41)
[2025-02-18] MEDS: ATORVASTATIN CALCIUM 40 MG TABLET PO SCH (22:41)
[2025-02-18] MEDS: LevETIRAcetam 500 MG TABLET PO SCH (22:41)
[2025-02-18] MEDS: ACETAMINOPHEN 325 MG TABLET PO PRN (22:41)
[2025-02-18] MEDS: TraZODone HCL 50 MG TABLET PO SCH (22:41)
[2025-02-18] MEDS: PREGABALIN 75 MG CAPSULE PO SCH (22:41)
[2025-02-18] MEDS: HEPARIN SODIUM,PORCINE 5,000 UNITS/ML VIAL SQ SCH (23:40)
[2025-02-18] MEDS: LamoTRIgine 100 MG TABLET PO SCH (23:40)
[2025-02-19 00:19] VITALS: BP 103/54; PULSE 76; RESP 18; TEMP 97.5; O2SAT 95
[2025-02-19 05:00] VITALS: BP 95/55; PULSE 78; RESP 19; TEMP 98.2; O2SAT 97
[2025-02-19 06:38] LABS: BASOPHILS % (AUTO) 0.6 % (0.0-2.0); EOSINOPHILS % (AUTO) 3.4 % (1.0-6.0); HEMATOCRIT 35.7 % (36-46); HEMOGLOBIN 11.8 g/dL (12.0-16.0); LYMPHOCYTES # (AUTO) 2.5 K/uL (1.0-4.8); LYMPHOCYTES % (AUTO) 37.8 % (22.0-44.0); MEAN CORPUSCULAR HGB CONC 32.9 G/dL (31.0-37.0); MEAN CORPUSCULAR VOLUME 85 fL (80-100); MONOCYTES # (AUTO) 0.6 K/uL (0.1-1.0); MONOCYTES % (AUTO) 9.6 % (2.0-9.0); NEUTROPHILS # (AUTO) 3.2 K/uL (1.8-7.7); NEUTROPHILS % (AUTO) 48.6 % (40.0-70.0); PLATELET COUNT (AUTO) 309 K/uL (150-450); RED CELL DISTRIBUTION WIDTH 17.2 % (11.5-14.5); WHITE BLOOD COUNT (AUTO) 6.5 K/uL (4.5-11.0)
[2025-02-19 06:52] LABS: ANION GAP 8 mmol/L (8-16); CALCIUM, TOTAL 8.9 mg/dL (8.8-10.5); CARBON DIOXIDE 29 mmol/L (22-29); CHLORIDE 106 mmol/L (98-107); CREATININE 0.92 mg/dL (0.60-1.30); GLOMERULAR FILTR. RATE CALC > 60 mL/min (>60); GLUCOSE,RANDOM 86 mg/dL (70-110); SODIUM SERUM 143 mmol/L (136-145); UREA NITROGEN, BLOOD 12 mg/dL (7-18)
[2025-02-19 08:00] VITALS: BP 112/74; PULSE 93; RESP 18; TEMP 97.7; O2SAT 100
[2025-02-19] MEDS: ASPIRIN 81 MG DR TABLET PO SCH (08:38)
[2025-02-19] MEDS: EZETIMIBE 10 MG TABLET PO SCH (08:38)
[2025-02-19] MEDS: CLOPIDOGREL BISULFATE 75 MG TABLET PO SCH (08:38)
[2025-02-19] MEDS: TOPIRAMATE 25 MG TABLET PO SCH (08:38)
[2025-02-19] MEDS: TENOFOVIR DISOPROXIL FUMARATE 300 MG TABLET PO SCH (08:38)
[2025-02-19] MEDS: PANTOPRAZOLE SODIUM 40 MG DR TABLET PO SCH (08:39)
[2025-02-19] MEDS ORDERED: OMEPRAZOLE 20 MG CAPSULE PO SCH (09:00)
[2025-02-19 10:33] LABS: CHOL/HDL RATIO 5.1 (3.9-5.7); CHOLESTEROL 214 mg/dL (131-200); HDL CHOLESTEROL 42 mg/dL (40-60); LDL CHOL (CALC.) 117 mg/dL (0-130); TRIGLYCERIDES 275 mg/dL (15-150)
[2025-02-19 12:00] VITALS: BP 108/65; PULSE 91; RESP 19; TEMP 97.5; O2SAT 97
[2025-02-19 20:17] VITALS: BP 102/69; PULSE 75; RESP 18; TEMP 98.1; O2SAT 97
[2025-02-19] MEDS: OLANZapine 7.5 MG TABLET PO SCH (20:44)
[2025-02-20 07:09] LABS: BASOPHILS % (AUTO) 0.7 % (0.0-2.0); EOSINOPHILS % (AUTO) 3.7 % (1.0-6.0); HEMATOCRIT 36.9 % (36-46); HEMOGLOBIN 12.2 g/dL (12.0-16.0); LYMPHOCYTES # (AUTO) 2.4 K/uL (1.0-4.8); LYMPHOCYTES % (AUTO) 34.9 % (22.0-44.0); MEAN CORPUSCULAR HEMOGLOBIN 27.9 pg (26.0-34.0); MEAN CORPUSCULAR VOLUME 85 fL (80-100); MONOCYTES # (AUTO) 0.6 K/uL (0.1-1.0); MONOCYTES % (AUTO) 8.8 % (2.0-9.0); NEUTROPHILS # (AUTO) 3.6 K/uL (1.8-7.7); NEUTROPHILS % (AUTO) 51.9 % (40.0-70.0); PLATELET COUNT (AUTO) 323 K/uL (150-450); RED BLOOD CELL COUNT(AUTO) 4.36 MIL/uL (4.00-5.20); RED CELL DISTRIBUTION WIDTH 17.3 % (11.5-14.5); WHITE BLOOD COUNT (AUTO) 6.8 K/uL (4.5-11.0)
[2025-02-20 07:35] LABS: ALANINE AMINOTRANSFERASE 46 U/L (12-78); ALBUMIN 3.3 g/dL (3.4-5.0); ALKALINE PHOSPHATASE 117 U/L (46-116); ANION GAP 8 mmol/L (8-16); ASPARTATE AMINOTRANSFERASE 26 U/L (15-37); BILIRUBIN,TOTAL 0.1 mg/dL (0.1-1.0); CARBON DIOXIDE 28 mmol/L (22-29); CHLORIDE 104 mmol/L (98-107); CREATININE 0.96 mg/dL (0.60-1.30); GLOMERULAR FILTR. RATE CALC > 60 mL/min (>60); GLUCOSE,RANDOM 92 mg/dL (70-110); POTASSIUM 3.7 mmol/L (3.5-5.1); SODIUM SERUM 140 mmol/L (136-145); TOTAL PROTEIN, SERUM 7.3 g/dL (6.4-8.2); UREA NITROGEN, BLOOD 14 mg/dL (7-18)
[2025-02-20 07:42] LABS: RBC MORPHOLOGY COMMENT ABNORMAL RBC MORPH
[2025-02-20 08:46] VITALS: BP 96/64; PULSE 83; RESP 18; TEMP 98.2; O2SAT 96
[2025-02-20] MEDS ORDERED: PANT-31 PO (11:50)
[2025-02-20] MEDS ORDERED: OLAN7.5T22 PO (11:55)
== END 2025-02-20 20:12 | DRG 313 ==
LOC: EMS 15:20 → EDH 17:53 → 5S 19:00 → 6S 02-20 11:25
PROVIDERS: ADMIT Internal Medicine; ATTEND Internal Medicine
DX: R07.89 Other chest pain (principal); I25.10 Atherosclerotic heart disease of native coronary artery without angina pectoris; I95.9 Hypotension, unspecified; E78.5 Hyperlipidemia, unspecified; F32.9 Major depressive disorder, single episode, unspecified; G47.00 Insomnia, unspecified; F43.10 Post-traumatic stress disorder, unspecified; F41.9 Anxiety disorder, unspecified; Z79.899 Other long term (current) drug therapy; Z95.0 Presence of cardiac pacemaker; Z87.891 Personal history of nicotine dependence
CPT/HCPCS: 71045; 80048; 80053; 80061; 81003; 82550; 83735; 83880; 84484; 85025; 85379; 85610; 85730; 93005; 93306; 99285; J1644; J7120; 36415-L1; 36415-TC

== ENCOUNTER 2025-03-02 11:53 | Inpatient (IN) | payer OTHER ==
[~2025-03-02] VITALS: Ht 152.4 cm; Wt 73.4 kg
[~2025-03-02 11:53] MED LIST changes: -ACYC-138 PO; -DOLU50TA PO; -LISI2.5T91 PO; -LORA-1370 PO; +OLAN7.5T22 PO; -OMEP-148 PO; +PANT-31 PO; -PARO-38 PO; -RIME75TA PO
[2025-03-02 14:43] LABS: BASOPHILS % (AUTO) 0.5 % (0.0-2.0); EOSINOPHILS % (AUTO) 1.4 % (1.0-6.0); HEMATOCRIT 36.6 % (36-46); HEMOGLOBIN 11.6 g/dL (12.0-16.0); LYMPHOCYTES # (AUTO) 1.7 K/uL (1.0-4.8); LYMPHOCYTES % (AUTO) 23.3 % (22.0-44.0); MEAN CORPUSCULAR HEMOGLOBIN 27.1 pg (26.0-34.0); MEAN CORPUSCULAR HGB CONC 31.7 G/dL (31.0-37.0); MEAN CORPUSCULAR VOLUME 85 fL (80-100); MONOCYTES # (AUTO) 0.4 K/uL (0.1-1.0); MONOCYTES % (AUTO) 5.8 % (2.0-9.0); NEUTROPHILS # (AUTO) 5.1 K/uL (1.8-7.7); PLATELET COUNT (AUTO) 352 K/uL (150-450); RED CELL DISTRIBUTION WIDTH 16.6 % (11.5-14.5); WHITE BLOOD COUNT (AUTO) 7.4 K/uL (4.5-11.0)
[2025-03-02 14:44] LABS: ANION GAP 8 mmol/L (8-16); CARBON DIOXIDE 28 mmol/L (22-29); CHLORIDE 104 mmol/L (98-107); GLOMERULAR FILTR. RATE CALC > 60 mL/min (>60); GLUCOSE,RANDOM 98 mg/dL (70-110); SODIUM SERUM 140 mmol/L (136-145); UREA NITROGEN, BLOOD 9 mg/dL (7-18)
[2025-03-02 15:52] LABS: APPEARANCE,URINE TURBID (CLEAR); BILIRUBIN,URINE NEGATIVE (NEGATIVE); GLUCOSE, URINE (UA) NEGATIVE (NEGATIVE); KETONES,URINE NEGATIVE (NEGATIVE); LEUKOCYTE ESTERASE ,URINE SMALL (NEGATIVE); NITRATE,URINE NEGATIVE (NEGATIVE); OCCULT BLOOD,URINE LARGE (NEGATIVE); PH,URINE 6.5 (5.0-8.0); PH,URINE DRUG SCREEN 6.5 (5.0-8.0); PROTEIN,URINE 30-70 mg/dL (NEGATIVE); SPECIFIC GRAVITIY, URINE 1.016 (1.003-1.030); UROBILINOGEN,URINE <=1.0 mg/dL (<=1.0)
[2025-03-02 15:59] LABS: COLOR,URINE LIGHT RED (YELLOW)
[2025-03-02 16:08] LABS: ALCOHOL, URINE DRUG SCREEN NEGATIVE (NEGATIVE); AMPHET/METH SCREEN,URINE NEGATIVE (NEGATIVE); BACTERIA,URINE Few /HPF (None Seen); BARBITURATE SCREEN, URINE NEGATIVE (NEGATIVE); BENZODIAZEPINES SCREEN,URINE NEGATIVE (NEGATIVE); CANNABINOID SCREEN,URINE NEGATIVE (NEGATIVE); COCAINE SCREEN,URINE NEGATIVE (NEGATIVE); METHADONE SCREEN, URINE NEGATIVE (NEGATIVE); OPIATE SCREEN,URINE NEGATIVE (NEGATIVE); PHENCYCLIDINE SCREEN,URINE NEGATIVE (NEGATIVE); RBC,URINE >100 /HPF (0-2); SQUAMOUS EPITHELIAL CELL,UR Few /LPF (None Seen)
[2025-03-02] MEDS: LORazepam 2 MG TABLET PO ONE (18:56)
[2025-03-02] MEDS ORDERED: ONDANSETRON HCL 4 MG/2 ML VIAL IVP PRN (20:15)
[2025-03-02] MEDS ORDERED: ACETAMINOPHEN 325 MG TABLET PO PRN (20:15)
[2025-03-02 22:11] VITALS: BP 116/83; PULSE 70; RESP 18; TEMP 98; O2SAT 96
[2025-03-02] MEDS: LevETIRAcetam 500 MG TABLET PO SCH (22:49)
[2025-03-02] MEDS: PREGABALIN 75 MG CAPSULE PO SCH (22:50)
[2025-03-02] MEDS: DEXTROSE 5%-LACTATED RINGERS 1,000 ML IV SCH (22:59)
[2025-03-02] MEDS: OLANZapine 7.5 MG TABLET PO SCH (23:00)
[2025-03-02] MEDS: LamoTRIgine 100 MG TABLET PO SCH (23:00)
[2025-03-03] MEDS: HEPARIN SODIUM,PORCINE 5,000 UNITS/ML VIAL SQ SCH (00:28)
[2025-03-03 04:00] VITALS: BP 102/71; PULSE 68; RESP 18; TEMP 98.6; O2SAT 97
[2025-03-03 07:00] VITALS: BP 98/50; PULSE 63; RESP 19; TEMP 98.1; O2SAT 96
[2025-03-03] MEDS: ASPIRIN 81 MG DR TABLET PO SCH (08:00)
[2025-03-03] MEDS: CLOPIDOGREL BISULFATE 75 MG TABLET PO SCH (10:16)
[2025-03-03] MEDS: ATORVASTATIN CALCIUM 40 MG TABLET PO SCH (10:16)
[2025-03-03] MEDS: LACOSAMIDE 100 MG TABLET PO SCH (10:17)
[2025-03-03] MEDS: PANTOPRAZOLE SODIUM 40 MG DR TABLET PO SCH (10:17)
[2025-03-03] MEDS: EZETIMIBE 10 MG TABLET PO SCH (10:17)
[2025-03-03] MEDS: TENOFOVIR DISOPROXIL FUMARATE 300 MG TABLET PO SCH (10:17)
[2025-03-03] MEDS: TOPIRAMATE 25 MG TABLET PO SCH (10:17)
[2025-03-03] MEDS ORDERED: RINGERS SOLUTION,LACTATED 1,000 ML IV ONE (11:38)
[2025-03-03] MEDS ORDERED: DEXTROSE 5%-0.45% SODIUM CHL 1,000 ML IV ONE (13:14)
[2025-03-03] MEDS: LORazepam 2 MG/ML VIAL IVP ONE (16:50)
[2025-03-03 20:03] VITALS: BP 102/60; PULSE 74; RESP 18; TEMP 98.2; O2SAT 95
[2025-03-03] MEDS: TraZODone HCL 50 MG TABLET PO SCH (20:48)
[2025-03-04 05:32] VITALS: BP 109/78; PULSE 62; RESP 18; TEMP 97.8; O2SAT 98
[2025-03-04 11:35] LABS: BASOPHILS % (AUTO) 0.8 % (0.0-2.0); EOSINOPHILS % (AUTO) 3.2 % (1.0-6.0); HEMATOCRIT 36.4 % (36-46); HEMOGLOBIN 11.9 g/dL (12.0-16.0); LYMPHOCYTES # (AUTO) 1.9 K/uL (1.0-4.8); LYMPHOCYTES % (AUTO) 31.6 % (22.0-44.0); MEAN CORPUSCULAR HGB CONC 32.7 G/dL (31.0-37.0); MEAN CORPUSCULAR VOLUME 86 fL (80-100); MONOCYTES # (AUTO) 0.5 K/uL (0.1-1.0); NEUTROPHILS # (AUTO) 3.4 K/uL (1.8-7.7); NEUTROPHILS % (AUTO) 55.4 % (40.0-70.0); PLATELET COUNT (AUTO) 311 K/uL (150-450); RED BLOOD CELL COUNT(AUTO) 4.25 MIL/uL (4.00-5.20); RED CELL DISTRIBUTION WIDTH 16.6 % (11.5-14.5); WHITE BLOOD COUNT (AUTO) 6.1 K/uL (4.5-11.0)
[2025-03-04 11:41] LABS: ANION GAP 8 mmol/L (8-16); CALCIUM, TOTAL 8.8 mg/dL (8.8-10.5); CARBON DIOXIDE 27 mmol/L (22-29); CHLORIDE 106 mmol/L (98-107); CREATININE 0.94 mg/dL (0.60-1.30); GLOMERULAR FILTR. RATE CALC > 60 mL/min (>60); GLUCOSE,RANDOM 79 mg/dL (70-110); POTASSIUM 3.8 mmol/L (3.5-5.1); SODIUM SERUM 141 mmol/L (136-145); UREA NITROGEN, BLOOD 11 mg/dL (7-18)
[2025-03-04] MEDS: LORazepam 0.5 MG TABLET PO PRN (15:19)
[2025-03-04 19:59] VITALS: BP 95/60; PULSE 79; RESP 18; TEMP 97.9; O2SAT 98
[2025-03-04 21:01] VITALS: BP 100/70; PULSE 75; RESP 19; O2SAT 96
[2025-03-04] MEDS: TraZODone HCL 100 MG TABLET PO SCH (21:08)
[2025-03-05 05:25] VITALS: BP 109/66; PULSE 78; RESP 18; TEMP 97.9; O2SAT 97
[2025-03-05] MEDS ORDERED: TRAZ-257 PO (16:33)
[2025-03-05] MEDS ORDERED: ACET650S39 PO (16:37)
== END 2025-03-05 20:14 | DRG 605 ==
LOC: EMS 11:56 → EDH 20:05 → 6S 21:52
PROVIDERS: ADMIT Internal Medicine; ATTEND Internal Medicine
DX: S10.93XA Contusion of unspecified part of neck, initial encounter (principal); R45.851 Suicidal ideations; F33.2 Major depressive disorder, recurrent severe without psychotic features; I25.10 Atherosclerotic heart disease of native coronary artery without angina pectoris; G40.909 Epilepsy, unspecified, not intractable, without status epilepticus; F41.9 Anxiety disorder, unspecified; I49.5 Sick sinus syndrome; G47.00 Insomnia, unspecified; F43.10 Post-traumatic stress disorder, unspecified; E66.9 Obesity, unspecified; R13.10 Dysphagia, unspecified; X83.8XXA Intentional self-harm by other specified means, initial encounter; Y92.148 Other place in prison as the place of occurrence of the external cause; Y93.89 Activity, other specified; Y99.8 Other external cause status; Z95.5 Presence of coronary angioplasty implant and graft; Z79.82 Long term (current) use of aspirin; Z79.02 Long term (current) use of antithrombotics/antiplatelets; Z88.2 Allergy status to sulfonamides; Z91.51 Personal history of suicidal behavior; Z68.32 Body mass index [BMI] 32.0-32.9, adult; Z79.899 Other long term (current) drug therapy; Z95.0 Presence of cardiac pacemaker
CPT/HCPCS: 70490; 71045; 80048; 80307; 81001; 83735; 84703; 85025; 87086; 93005; 93306; 99291; G0480; J1644; J2060; J7120; 36415-L1; 36415-TC

== ENCOUNTER 2025-06-24 03:30 | Emergency (ER) | payer OTHER ==
[~2025-06-24] VITALS: Ht 152.4 cm; Wt 75.0 kg
[~2025-06-24 03:30] MED LIST changes: +ACET650S39 PO; -PANT-31 PO; -TRAZ-252 PO; +TRAZ-257 PO
[2025-06-24 03:31] VITALS: TEMP 98.4
[2025-06-24] MEDS: SODIUM CHLORIDE 0.9% 1,000 ML IV ONE (03:51)
[2025-06-24 04:43] LABS: PLATELET COUNT (AUTO) 433 K/uL (150-450); RED BLOOD CELL COUNT(AUTO) 4.80 MIL/uL (4.00-5.20); RED CELL DISTRIBUTION WIDTH 17.2 % (11.5-14.5); WHITE BLOOD COUNT (AUTO) 14.2 K/uL (4.5-11.0)
[2025-06-24 04:49] LABS: CALCIUM, TOTAL 8.7 mg/dL (8.8-10.5); CREATININE 1.11 mg/dL (0.60-1.30); GLOMERULAR FILTR. RATE CALC 53 mL/min (>60); GLUCOSE,RANDOM 130 mg/dL (70-110); SODIUM SERUM 138 mmol/L (136-145); UREA NITROGEN, BLOOD 18 mg/dL (7-18)
[2025-06-24 04:58] LABS: TROPONIN I-HIGH SENSITIVITY 28 ng/L (<51)
[2025-06-24 05:00] LABS: APPEARANCE,URINE CLEAR (CLEAR); GLUCOSE, URINE (UA) 300-500 mg/dL (NEGATIVE); LEUKOCYTE ESTERASE ,URINE SMALL (NEGATIVE); NITRATE,URINE NEGATIVE (NEGATIVE); OCCULT BLOOD,URINE SMALL (NEGATIVE); PH,URINE DRUG SCREEN 6.5 (5.0-8.0); SPECIFIC GRAVITIY, URINE 1.012 (1.003-1.030)
[2025-06-24 05:03] LABS: ALCOHOL, URINE DRUG SCREEN NEGATIVE (NEGATIVE); AMPHET/METH SCREEN,URINE POSITIVE (NEGATIVE); BARBITURATE SCREEN, URINE NEGATIVE (NEGATIVE); CANNABINOID SCREEN,URINE NEGATIVE (NEGATIVE); COCAINE SCREEN,URINE NEGATIVE (NEGATIVE); METHADONE SCREEN, URINE NEGATIVE (NEGATIVE)
[2025-06-24 05:06] LABS: SQUAMOUS EPITHELIAL CELL,UR Few /LPF (None Seen)
[2025-06-24] MEDS: POTASSIUM CHLORIDE 20 MEQ ER TABLET PO ONE (09:37)
[2025-06-24 10:01] VITALS: BP 131/84; PULSE 90; RESP 17; O2SAT 98
== END 2025-06-24 10:01 | disposition home or self-care (01) ==
LOC: EMS 03:30
DX: T40.411A Poisoning by fentanyl or fentanyl analogs, accidental (unintentional), initial encounter (principal); F15.10 Other stimulant abuse, uncomplicated; F41.9 Anxiety disorder, unspecified; F32.A Depression, unspecified; I25.10 Atherosclerotic heart disease of native coronary artery without angina pectoris; Z95.5 Presence of coronary angioplasty implant and graft; Z95.0 Presence of cardiac pacemaker; Z88.2 Allergy status to sulfonamides; Z79.02 Long term (current) use of antithrombotics/antiplatelets; Z79.624 Long term (current) use of inhibitors of nucleotide synthesis; Z79.899 Other long term (current) drug therapy; Y92.89 Other specified places as the place of occurrence of the external cause
CPT/HCPCS: 99285; 96360; 71045; 96361; 80048; 81001; 82550; 82962; 84484; 84703; 85025; 87040; 36415; 93005; 80307; J7030